=== PATIENT | female | born 1960 | race Caucasian/White ===

== ENCOUNTER 2017-02-15 10:58 | Emergency (ER) | payer OTHER ==
[~2017-02-15] VITALS: Wt 70.3 kg
[2017-02-15 11:05] VITALS: BP 93/53
[2017-02-15] MEDS ORDERED: FEROSUL325 MG PO (11:06)
[2017-02-15] MEDS ORDERED: LISINOPRIL20 MG PO (11:06)
[2017-02-15] MEDS ORDERED: B121000 MCG/1 IM (11:07)
[2017-02-15] MEDS ORDERED: VITAMIN D50000 I3 PO (11:07)
[2017-02-15] MEDS ORDERED: PANTOPRAZOLE SO40 MG PO (11:07)
[2017-02-15] MEDS ORDERED: AUGMENTIN 875-875 MG PO (11:38)
== END 2017-02-15 13:36 | disposition home or self-care (01) ==
LOC: ED 10:58
DX: S51.851A Open bite of right forearm, initial encounter (principal); Z98.84 Bariatric surgery status; Z88.1 Allergy status to other antibiotic agents; W54.0XXA Bitten by dog, initial encounter; Y93.89 Activity, other specified; Y92.9 Unspecified place or not applicable; Y99.9 Unspecified external cause status

== ENCOUNTER → 2017-07-31 | Outpatient (CLI) | payer OTHER ==
[~2017-07-31] MED LIST: AUGMENTIN 875-875 MG PO; B121000 MCG/1 IM; FEROSUL325 MG PO; LISINOPRIL20 MG PO; PANTOPRAZOLE SO40 MG PO; VITAMIN D50000 I3 PO
== END | disposition home or self-care (01) ==
LOC: US 09:49
DX: K80.20 Calculus of gallbladder without cholecystitis without obstruction (principal); K82.8 Other specified diseases of gallbladder

== ENCOUNTER 2018-01-24 21:55 | Emergency (ER) | payer OTHER ==
[~2018-01-24] VITALS: Ht 160 cm; Wt 77.1 kg
[2018-01-24] MEDS ORDERED: CHLORTHALIDONE25 MG PO (22:03)
[2018-01-24 23:45] LABS: BASO # 0.1 10*3/uL (0.0-0.1); BASO % 1.4 % (0.0-1.0); EOS # 0.1 10*3/uL (0.0-0.4); EOS % 1.1 % (1.0-4.0); HEMATOCRIT 36.3 % (37.0-47.0); HEMOGLOBIN 11.6 g/dl (12.0-16.0); LYMPH # 1.9 10*3/uL (1.3-4.4); LYMPH % 26.4 % (27.0-41.0); MEAN CELL VOLUME 94.5 fl (81.0-99.0); MEAN CORPUSCULAR HGB 30.2 pg (27.0-31.0); MEAN PLATELET VOLUME 14.1 fl (9.6-12.3); MONO # 0.7 10*3/uL (0.1-1.0); MONO % 9.8 % (3.0-9.0); NEUT # 4.4 10*3/uL (2.3-7.9); NEUT % 59.9 % (47.0-73.0); PLATELET COUNT AUTOMATED 186 10*3/uL (130-400); RED BLOOD COUNT 3.84 10*6/uL (4.10-5.10); RED CELL DISTRI WIDTH 15.9 % (0-14.5); WHITE BLOOD COUNT 7.3 10*3/uL (4.8-10.8)
[2018-01-24 23:48] LABS: ALBUMIN 2.9 gm/dl (3.1-4.5); ALKALINE PHOSPHATASE 112 U/L (45-117); BUN 19 mg/dl (7-24); CHLORIDE 114 mmol/L (98-107); CREATININE 1.08 mg/dL (0.55-1.02); POTASSIUM 4.5 mmol/L (3.5-5.1); SGOT/AST 11 IU/L (3-35); SGPT/ALT 13 U/L (12-78); SODIUM 145 mmol/L (136-145); TOTAL PROTEIN 6.9 gm/dL (6.4-8.2)
[2018-01-24 23:49] LABS: BILIRUBIN NEGATIVE (NEGATIVE); BLOOD TRACE-LYSED (NEGATIVE); CLARITY CLEAR (CLEAR); COLOR YELLOW (YELLOW); GLUCOSE NEGATIVE (NEGATIVE); KETONE NEGATIVE (NEGATIVE); LEUKO ESTERASE 1+ (NEGATIVE); NITRITE POSITIVE (NEGATIVE); SPECIFIC GRAVITY 1.025 (1.005-1.030); UROBILINOGEN 0.2 E.U./dl (0.2-1.0)
[2018-01-25 00:25] LABS: BACTERIA 2+
[2018-01-25 01:51] VITALS: BP 104/87
== END 2018-01-25 02:04 | disposition short-term general hospital (02) ==
LOC: ED 21:55
PROVIDERS: Nurse Practitioner Family
DX: S73.005A Unspecified dislocation of left hip, initial encounter (principal); N39.0 Urinary tract infection, site not specified; Z88.1 Allergy status to other antibiotic agents; Z88.8 Allergy status to other drugs, medicaments and biological substances; Z91.09 Other allergy status, other than to drugs and biological substances; Z79.899 Other long term (current) drug therapy; Z98.890 Other specified postprocedural states; X50.1XXA Overexertion from prolonged static or awkward postures, initial encounter; Y93.89 Activity, other specified; Y92.89 Other specified places as the place of occurrence of the external cause; Y99.8 Other external cause status

== ENCOUNTER 2018-09-26 06:22 | Emergency (ER) | payer SELFPAY ==
[~2018-09-26] VITALS: Ht 157.4 cm; Wt 77.1 kg
[~2018-09-26 06:22] MED LIST changes: +CHLORTHALIDONE25 MG PO
[2018-09-26 08:45] VITALS: BP 142/73
== END 2018-09-26 09:12 | disposition short-term general hospital (02) ==
LOC: ED 06:22
DX: S73.005A Unspecified dislocation of left hip, initial encounter (principal); Z98.890 Other specified postprocedural states; Z98.84 Bariatric surgery status; Z96.643 Presence of artificial hip joint, bilateral; Z79.899 Other long term (current) drug therapy; Z88.1 Allergy status to other antibiotic agents; Z88.8 Allergy status to other drugs, medicaments and biological substances; X50.1XXA Overexertion from prolonged static or awkward postures, initial encounter; Y93.89 Activity, other specified; Y92.89 Other specified places as the place of occurrence of the external cause; Y99.9 Unspecified external cause status

== ENCOUNTER 2019-07-20 21:03 | Emergency (ER) | payer OTHER ==
[~2019-07-20] VITALS: Ht 170.1 cm; Wt 94.3 kg
[2019-07-20 22:43] VITALS: BP 107/53
== END 2019-07-20 23:00 | disposition home or self-care (01) ==
LOC: ED 21:03
DX: T84.021A Dislocation of internal left hip prosthesis, initial encounter (principal); I10 Essential (primary) hypertension; Z88.1 Allergy status to other antibiotic agents; Z88.8 Allergy status to other drugs, medicaments and biological substances; Z79.899 Other long term (current) drug therapy; X58.XXXA Exposure to other specified factors, initial encounter; Y93.89 Activity, other specified; Y92.89 Other specified places as the place of occurrence of the external cause; Y99.8 Other external cause status

== ENCOUNTER 2019-12-25 12:11 | Emergency (ER) | payer OTHER ==
[2019-12-25 14:10] VITALS: BP 145/78
[2019-12-25] MEDS ORDERED: NORCO 5-325 TA1 EACH PO (14:58)
== END 2019-12-25 14:29 | disposition home or self-care (01) ==
LOC: ED 12:11
DX: S73.015A Posterior dislocation of left hip, initial encounter (principal); I10 Essential (primary) hypertension; Z96.642 Presence of left artificial hip joint; Z88.1 Allergy status to other antibiotic agents; Z88.8 Allergy status to other drugs, medicaments and biological substances; Z79.899 Other long term (current) drug therapy; X58.XXXA Exposure to other specified factors, initial encounter; Y93.89 Activity, other specified; Y92.89 Other specified places as the place of occurrence of the external cause; Y99.8 Other external cause status

== ENCOUNTER → 2020-06-04 | Outpatient (CLI) | payer OTHER ==
[~2020-06-04] MED LIST changes: +DERMACINRX5000 UNI1 PO; +NORCO 5-325 TA1 EACH PO; -VITAMIN D50000 I3 PO
== END | disposition home or self-care (01) ==
LOC: COVID19 00:22
PROVIDERS: ATTEND Ophthalmology
DX: Z01.812 Encounter for preprocedural laboratory examination (principal); Z20.828 Contact with and (suspected) exposure to other viral communicable diseases

== ENCOUNTER 2020-08-07 14:26 | Emergency (ER) | payer OTHER ==
[~2020-08-07] VITALS: Ht 160 cm; Wt 83.9 kg
[2020-08-07 17:28] VITALS: BP 134/72
== END 2020-08-07 17:35 | disposition home or self-care (01) ==
LOC: ED 14:26
DX: M17.11 Unilateral primary osteoarthritis, right knee (principal); M16.11 Unilateral primary osteoarthritis, right hip; I10 Essential (primary) hypertension; K21.9 Gastro-esophageal reflux disease without esophagitis; Z91.048 Other nonmedicinal substance allergy status; Z88.1 Allergy status to other antibiotic agents; Z88.8 Allergy status to other drugs, medicaments and biological substances; Z79.899 Other long term (current) drug therapy; Z98.84 Bariatric surgery status; Z98.890 Other specified postprocedural states; Z96.643 Presence of artificial hip joint, bilateral

== ENCOUNTER → 2021-04-22 | Outpatient (CLI) | payer OTHER ==
[2021-04-22 13:38] LABS: HEMATOCRIT 31.2 % (37.0-47.0); MEAN CELL VOLUME 97.5 fl (81.0-99.0); MEAN CORPUSCULAR HGB 29.4 pg (27.0-31.0); MEAN CORPUSCULAR HGB CONC 30.1 g/dl (33.0-37.0); MEAN PLATELET VOLUME 13.8 fl (9.6-12.3); PLATELET COUNT AUTOMATED 226 10*3/uL (130-400); RED CELL DISTRI WIDTH 17.2 % (0-14.5); WHITE BLOOD COUNT 11.6 10*3/uL (4.8-10.8)
[2021-04-22 13:53] LABS: PLATELET SUFFICIENCY NORMAL (NORMAL); TOTAL CELLS COUNTED 100 #CELLS
[2021-04-23 08:08] LABS: HEP B CORE AB, IGM Negative (Negative); HEPATITIS B SURFACE AG Negative (Negative); HEPATITIS C VIRUS ANTIBODY <0.1 s/co (0.0-0.9)
[2021-04-23 09:07] LABS: RHEUMATOID ARTHRITIS FACTOR 11.2 IU/mL (0.0-13.9)
[2021-04-24 09:06] LABS: ANTI-RNP ANTIBODIES 0.3 AI (0.0-0.9)
[2021-04-24 12:06] LABS: LUPUS DRVVT 46.2 sec (0.0-47.0); LUPUS REFLEX INTERPRETATION Comment: (.); PTT-LA 35.9 sec (0.0-51.9)
[2021-04-26 00:06] LABS: CCP ANTIBODIES IGG/IGA 7 units (0-19)
[2021-04-28 15:07] LABS: HLA-B27 ANTIGEN Negative (.)
== END | disposition home or self-care (01) ==
LOC: LAB 13:17
PROVIDERS: ATTEND Orthopaedic Surgery
DX: M79.641 Pain in right hand (principal)

== ENCOUNTER → 2021-07-13 | Outpatient (CLI) | payer OTHER | END | disposition home or self-care (01) | LOC: RAD 07:43 | PROVIDERS: ATTEND Internal Medicine Rheumatology | DX: I08.2 Rheumatic disorders of both aortic and tricuspid valves (principal); M81.0 Age-related osteoporosis without current pathological fracture; K91.2 Postsurgical malabsorption, not elsewhere classified; Z78.0 Asymptomatic menopausal state ==

== ENCOUNTER → 2021-09-07 | Outpatient (CLI) | payer OTHER | END | disposition home or self-care (01) | LOC: MAMMO 08-29 09:30 | PROVIDERS: ATTEND Nurse Practitioner Women's Health | DX: Z12.31 Encounter for screening mammogram for malignant neoplasm of breast (principal) ==

== ENCOUNTER → 2021-09-22 | Outpatient (CLI) | payer OTHER ==
[~2021-09-22] MED LIST changes: +CELEBREX100 MG PO; +LASIX20 MG PO; +TOPROL XL50 M1 PO; +TYLENOL325 M1 PO; +VICO10300 PO
== END | disposition home or self-care (01) ==
LOC: CARD 09-08 00:04
PROVIDERS: ATTEND Internal Medicine Cardiovascular Disease
DX: I35.0 Nonrheumatic aortic (valve) stenosis (principal); I51.7 Cardiomegaly; I10 Essential (primary) hypertension

== ENCOUNTER → 2022-02-22 | Outpatient (CLI) | payer OTHER ==
[2022-02-22 10:43] LABS: BASO # 0.1 10*3/uL (0.0-0.1); BASO % 1.1 % (0.0-1.0); EOS # 0.1 10*3/uL (0.0-0.4); HEMATOCRIT 36.7 % (37.0-47.0); LYMPH # 1.4 10*3/uL (1.3-4.4); LYMPH % 22.4 % (27.0-41.0); MEAN CELL VOLUME 100.8 fl (81.0-99.0); MEAN CORPUSCULAR HGB 30.5 pg (27.0-31.0); MEAN CORPUSCULAR HGB CONC 30.2 g/dl (33.0-37.0); MEAN PLATELET VOLUME 14.1 fl (9.6-12.3); MONO # 0.5 10*3/uL (0.1-1.0); MONO % 8.4 % (3.0-9.0); NEUT # 4.2 10*3/uL (2.3-7.9); NEUT % 66.1 % (47.0-73.0); PLATELET COUNT AUTOMATED 126 10*3/uL (130-400); RED BLOOD COUNT 3.64 10*6/uL (4.10-5.10); RED CELL DISTRI WIDTH 13.1 % (0-14.5); WHITE BLOOD COUNT 6.3 10*3/uL (4.8-10.8)
[2022-02-22 10:54] LABS: IRON 66 ug/dL (50-170)
== END | disposition home or self-care (01) ==
LOC: LAB 10:17
PROVIDERS: ATTEND Nurse Practitioner Family
DX: D64.9 Anemia, unspecified (principal)

== ENCOUNTER → 2022-04-18 | Outpatient (CLI) | payer OTHER ==
[2022-04-18 09:17] LABS: BUN 30 mg/dl (7-24); CHLORIDE 121 mmol/L (98-107); CHOLESTEROL 137 mg/dL (<200); CREATININE 1.03 mg/dL (0.55-1.02); LDL CHOLESTEROL 48 mg/dL (9-159); POTASSIUM 4.5 mmol/L (3.5-5.1); SGOT/AST 6 IU/L (3-35); SGPT/ALT 12 U/L (12-78); SODIUM 144 mmol/L (136-145); TRIGLYCERIDES 120 mg/dl (<150)
== END ==
LOC: LAB 08:45
PROVIDERS: ATTEND Physician Assistant
DX: I10 Essential (primary) hypertension (principal)

== ENCOUNTER → 2022-05-11 | Outpatient (CLI) | payer OTHER ==
[2022-05-11 13:55] LABS: VITAMIN D, 25-HYDROXY 23.7 ng/mL (30-100)
== END ==
LOC: LAB 11:35
PROVIDERS: ATTEND Registered Nurse
DX: E83.51 Hypocalcemia (principal)

== ENCOUNTER → 2022-06-02 | Outpatient (CLI) | payer OTHER ==
[2022-06-02 10:39] LABS: BILIRUBIN Negative (Negative); BLOOD Trace-Lysed (Negative); CLARITY Cloudy (Clear); COLOR Yellow (Yellow); GLUCOSE Negative (Negative); KETONE Negative (Negative); LEUKO ESTERASE 3+ (Negative); NITRITE Positive (Negative); SPECIFIC GRAVITY 1.015 (1.001-1.030); UROBILINOGEN 0.2 E.U./dl (0.0-1.0)
[2022-06-02 10:45] LABS: CREATININE 1.12 mg/dL (0.55-1.02); TOTAL PROTEIN 6.9 gm/dL (6.4-8.2)
[2022-06-02 12:04] LABS: BACTERIA 2+
[2022-06-02 12:12] LABS: VITAMIN D, 25-HYDROXY 26.6 ng/mL (30-100)
[2022-06-02 12:23] LABS: HEMATOCRIT 37.3 % (37.0-47.0); MEAN CELL VOLUME 100.3 fl (81.0-99.0); MEAN CORPUSCULAR HGB 30.4 pg (27.0-31.0); MEAN CORPUSCULAR HGB CONC 30.3 g/dl (33.0-37.0); MEAN PLATELET VOLUME 14.1 fl (9.6-12.3); PLATELET COUNT AUTOMATED 117 10*3/uL (130-400); RED BLOOD COUNT 3.72 10*6/uL (4.10-5.10); RED CELL DISTRI WIDTH 13.3 % (0-14.5); WHITE BLOOD COUNT 6.6 10*3/uL (4.8-10.8)
[2022-06-02 12:28] LABS: MANUAL DIFF REFLEX YES
[2022-06-02 13:22] LABS: BASOPHILS 2 % (0-1); TOTAL CELLS COUNTED 100 #CELLS
[2022-06-02 13:23] LABS: PLATELET SUFFICIENCY LOW (NORMAL)
[2022-06-03 09:07] LABS: CREATININE,URINE 45.8 mg/dL (Not Estab.)
== END | disposition home or self-care (01) ==
LOC: LAB 09:52
PROVIDERS: ATTEND Internal Medicine
DX: I10 Essential (primary) hypertension (principal); D64.9 Anemia, unspecified

== ENCOUNTER → 2022-07-04 | Outpatient (CLI) | payer OTHER | END | disposition home or self-care (01) | LOC: US 13:00 | PROVIDERS: ATTEND Internal Medicine | DX: N18.9 Chronic kidney disease, unspecified (principal); N28.89 Other specified disorders of kidney and ureter ==

== ENCOUNTER → 2023-01-05 | Outpatient (CLI) | payer OTHER | END | disposition home or self-care (01) | LOC: MRI 00:25 | PROVIDERS: ATTEND Orthopaedic Surgery | DX: M17.12 Unilateral primary osteoarthritis, left knee (principal); M23.92 Unspecified internal derangement of left knee; M25.462 Effusion, left knee ==

== ENCOUNTER → 2023-01-10 | Outpatient (CLI) | payer OTHER | END | disposition home or self-care (01) | LOC: US 00:38 | PROVIDERS: ATTEND Internal Medicine | DX: N18.32 Chronic kidney disease, stage 3b (principal) ==

== ENCOUNTER → 2023-01-24 | Outpatient (CLI) | payer OTHER | END | disposition home or self-care (01) | LOC: D 09:01 | PROVIDERS: ATTEND Student in an Organized Health Care Education/Training Program | DX: E66.9 Obesity, unspecified (principal) ==

== ENCOUNTER 2023-02-10 20:19 | Emergency (ER) | payer OTHER ==
[2023-02-10 20:45] LABS: HEMATOCRIT 35.1 % (37.0-47.0); MEAN CELL VOLUME 95.4 fl (81.0-99.0); MEAN CORPUSCULAR HGB 29.9 pg (27.0-31.0); MEAN CORPUSCULAR HGB CONC 31.3 g/dl (33.0-37.0); PLATELET COUNT AUTOMATED 101 10*3/uL (130-400); RED BLOOD COUNT 3.68 10*6/uL (4.10-5.10); RED CELL DISTRI WIDTH 13.6 % (0-14.5); WHITE BLOOD COUNT 7.3 10*3/uL (4.8-10.8)
[2023-02-10 21:09] LABS: MANUAL DIFF REFLEX YES
[2023-02-10 21:12] LABS: PLATELET SUFFICIENCY LOW (NORMAL); TOTAL CELLS COUNTED 100 #CELLS
[2023-02-10 21:19] LABS: ALKALINE PHOSPHATASE 79 U/L (46-116); BUN 37 mg/dl (9-23); CHLORIDE 112 mmol/L (98-107); ETHYL ALCOHOL 278.3 mg/dl (<3); POTASSIUM 4.3 mmol/L (3.4-5.1); SGPT/ALT < 7 U/L (10-49); TOTAL PROTEIN 6.6 gm/dL (6.0-8.0)
[2023-02-11 03:33] LABS: BILIRUBIN Negative (Negative); BLOOD Trace-Lysed (Negative); CLARITY Cloudy (Clear); COLOR Yellow (Yellow); GLUCOSE Negative (Negative); KETONE Negative (Negative); LEUKO ESTERASE 3+ (Negative); NITRITE Negative (Negative); PH 6.5 (4.5-8.0)
[2023-02-11 03:40] LABS: URINE AMPHETAMINES Negative (1000ng/ml); URINE BARBITURATES Negative (200ng/ml); URINE BENZODIAZEPINES Negative (200ng/ml); URINE CANNABINOIDS (THC) Negative (50ng/ml); URINE COCAINE Negative (300ng/ml); URINE METHADONE Negative (300ng/ml); URINE OPIATES Positive (300ng/ml); URINE PHENCYCLIDINE Negative (25ng/ml)
[2023-02-11 03:50] LABS: BACTERIA 3+; RBC 0-2 rbc/hpf (0-2); WBC 41-50 wbc/hpf (0-5)
[2023-02-11 06:06] VITALS: BP 131/77
== END 2023-02-11 12:48 | disposition home or self-care (01) ==
LOC: ED 20:19
PROVIDERS: Internal Medicine
DX: R45.851 Suicidal ideations (principal); N18.9 Chronic kidney disease, unspecified; N17.9 Acute kidney failure, unspecified; F10.129 Alcohol abuse with intoxication, unspecified; I10 Essential (primary) hypertension; K21.9 Gastro-esophageal reflux disease without esophagitis; E83.42 Hypomagnesemia; D64.9 Anemia, unspecified; N39.0 Urinary tract infection, site not specified; Z88.8 Allergy status to other drugs, medicaments and biological substances; Z88.1 Allergy status to other antibiotic agents; Z98.890 Other specified postprocedural states; Z98.49 Cataract extraction status, unspecified eye; Y90.0 Blood alcohol level of less than 20 mg/100 ml

== ENCOUNTER → 2023-10-29 | Outpatient (CLI) | payer OTHER | END | disposition home or self-care (01) | LOC: RAD 01:35 → CARD 10:30 | PROVIDERS: ATTEND Nurse Practitioner Family | DX: I51.7 Cardiomegaly (principal); M81.8 Other osteoporosis without current pathological fracture; M34.1 CR(E)ST syndrome; M34.9 Systemic sclerosis, unspecified; Z79.899 Other long term (current) drug therapy ==

== ENCOUNTER → 2024-01-31 | Outpatient (CLI) | payer MEDICARE | END | disposition home or self-care (01) | LOC: LAB 08:56 | PROVIDERS: ATTEND Nurse Practitioner Family | DX: E83.51 Hypocalcemia (principal) ==

== ENCOUNTER → 2024-09-19 | Outpatient (CLI) | payer MEDICARE ==
[2024-09-19 10:09] LABS: MEAN CELL VOLUME 99.1 fl (81.0-99.0); MEAN CORPUSCULAR HGB 28.6 pg (27.0-31.0); MEAN CORPUSCULAR HGB CONC 28.8 g/dl (33.0-37.0); PLATELET COUNT AUTOMATED 106 10*3/uL (130-400); RED BLOOD COUNT 3.43 10*6/uL (4.10-5.10); RED CELL DISTRI WIDTH 14.6 % (0-14.5); WHITE BLOOD COUNT 8.8 10*3/uL (4.8-10.8)
[2024-09-19 10:11] LABS: MANUAL DIFF REFLEX YES
[2024-09-19 10:17] LABS: CHOLESTEROL 144 mg/dL (<200); LDL CHOLESTEROL 66 mg/dL (9-159); TRIGLYCERIDES 88 mg/dl (<150)
[2024-09-19 10:18] LABS: POTASSIUM 4.6 mmol/L (3.4-5.1); TOTAL PROTEIN 6.8 gm/dL (6.0-8.0)
== END | disposition home or self-care (01) ==
LOC: LAB 09:34
PROVIDERS: Internal Medicine Nephrology; ATTEND Internal Medicine
DX: I12.9 Hypertensive chronic kidney disease with stage 1 through stage 4 chronic kidney disease, or unspecified chronic kidney disease (principal); N18.32 Chronic kidney disease, stage 3b; E21.3 Hyperparathyroidism, unspecified; E87.5 Hyperkalemia; D63.1 Anemia in chronic kidney disease; N29 Other disorders of kidney and ureter in diseases classified elsewhere; M34.9 Systemic sclerosis, unspecified; E55.9 Vitamin D deficiency, unspecified

== ENCOUNTER → 2025-01-23 | Outpatient (CLI) | payer OTHER ==
[2025-01-23 16:06] LABS: POTASSIUM 5.1 mmol/L (3.4-5.1); TOTAL PROTEIN 6.4 gm/dL (6.0-8.0)
== END | disposition home or self-care (01) ==
LOC: LAB 15:16
PROVIDERS: ATTEND Nurse Practitioner Family
DX: E87.5 Hyperkalemia (principal)

== ENCOUNTER → 2025-03-02 | Outpatient (CLI) | payer OTHER ==
[2025-03-02 12:02] LABS: MANUAL DIFF REFLEX YES; MEAN CELL VOLUME 97.5 fl (81.0-99.0); MEAN CORPUSCULAR HGB 27.9 pg (27.0-31.0); NUCLEATED RED BLOOD CELL 0.0 % (0.0-0.0); NUCLEATED RED BLOOD CELL 0.0 10*3/uL (0.0-0.0); PLATELET COUNT AUTOMATED 123 10*3/uL (130-400); RED CELL DISTRI WIDTH 14.1 % (0-14.5)
[2025-03-02 12:21] LABS: BASOPHILS 2 % (0-1); PLATELET SUFFICIENCY LOW (NORMAL)
[2025-03-02 12:25] LABS: BUN 36 mg/dl (9-23)
[2025-03-02 12:26] LABS: SGPT/ALT < 7 U/L (5-49)
[2025-03-02 12:28] LABS: VITAMIN D, 25-HYDROXY 54.2 ng/mL (30-100)
== END | disposition home or self-care (01) ==
LOC: LAB 10:28 → CARD 10:30
PROVIDERS: Nurse Practitioner Adult Health; ATTEND Physician Assistant
DX: I12.9 Hypertensive chronic kidney disease with stage 1 through stage 4 chronic kidney disease, or unspecified chronic kidney disease (principal); N18.32 Chronic kidney disease, stage 3b; I34.0 Nonrheumatic mitral (valve) insufficiency; I51.7 Cardiomegaly; R06.02 Shortness of breath; E87.5 Hyperkalemia; E55.9 Vitamin D deficiency, unspecified; N29 Other disorders of kidney and ureter in diseases classified elsewhere; M34.9 Systemic sclerosis, unspecified; E83.42 Hypomagnesemia

== ENCOUNTER 2025-03-10 13:07 | Emergency (ER) | payer OTHER ==
[~2025-03-10] VITALS: Ht 160 cm; Wt 78.9 kg
[2025-03-10] MEDS ORDERED: SODIUM CHLORIDE 0.9% 1,000 ML IV ONE (15:15)
[2025-03-10 15:36] LABS: BILIRUBIN Negative (Negative); BLOOD 1+ (Negative); CLARITY Turbid (Clear); COLOR Yellow (Yellow); KETONE Trace (Negative); LEUKO ESTERASE 3+ (Negative); NITRITE Positive (Negative); PH 5.0 (4.5-8.0); SPECIFIC GRAVITY 1.020 (1.001-1.030); UROBILINOGEN 0.2 E.U./dl (0.0-1.0)
[2025-03-10 16:01] LABS: MEAN CELL VOLUME 96.5 fl (81.0-99.0); MEAN CORPUSCULAR HGB 28.3 pg (27.0-31.0); NUCLEATED RED BLOOD CELL 0.0 % (0.0-0.0); NUCLEATED RED BLOOD CELL 0.0 10*3/uL (0.0-0.0); RED CELL DISTRI WIDTH 13.8 % (0-14.5)
[2025-03-10 16:11] LABS: MANUAL DIFF REFLEX YES; PLATELET COUNT AUTOMATED 95 10*3/uL (130-400)
[2025-03-10 16:21] LABS: BUN 37 mg/dl (9-23)
[2025-03-10 16:23] LABS: PLATELET SUFFICIENCY LOW (NORMAL)
[2025-03-10 16:23] LABS: BACTERIA 3+; WBC TNTC wbc/hpf (0-5)
[2025-03-10 16:26] LABS: SGPT/ALT < 7 U/L (5-49)
[2025-03-10] MEDS ORDERED: HYDROmorphONE Hydrochloride 0.5 MG/0.5 ML SYRINGE IV ONE ×2 (17:15→18:20)
[2025-03-10 17:30] VITALS: BP 136/78
[2025-03-10] MEDS ORDERED: CEPHALEXIN500 M1 PO (17:53)
== END 2025-03-10 18:48 | disposition home or self-care (01) ==
LOC: ED 13:07
PROVIDERS: Nurse Practitioner Family
DX: N39.0 Urinary tract infection, site not specified (principal); G89.29 Other chronic pain; I12.9 Hypertensive chronic kidney disease with stage 1 through stage 4 chronic kidney disease, or unspecified chronic kidney disease; N18.4 Chronic kidney disease, stage 4 (severe); K21.9 Gastro-esophageal reflux disease without esophagitis; Z79.899 Other long term (current) drug therapy; Z88.1 Allergy status to other antibiotic agents; Z88.8 Allergy status to other drugs, medicaments and biological substances; Z96.643 Presence of artificial hip joint, bilateral; Z98.890 Other specified postprocedural states

== ENCOUNTER → 2025-03-23 | Outpatient (CLI) | payer OTHER ==
[~2025-03-23] MED LIST changes: +ALBUTEROL4 MG PO; +CALCIUM CITRAT200 M1 PO; +CEPHALEXIN500 M1 PO; +CHILDREN'S FLO5.9 ML INH; +COLCHICINE0.6 M1 PO; +FAMOTIDINE20 M1 PO; +FEBUXOSTAT40 MG PO; +HYDROCODONE-AC1 EACH PO; +MAGNESIUM400 MG PO; +MONTELUKAST SOD10 MG PO; +MYCOPHENOLATE500 MG PO; +PANTOPRAZOLE SO20 MG PO; +ZYRTEC10 M2 PO
[2025-03-23 11:18] LABS: BUN 30.0 mg/dl (9-23); SGPT/ALT 7.0 U/L (5-49)
== END | disposition home or self-care (01) ==
LOC: LAB 09:44
PROVIDERS: ATTEND Nurse Practitioner Adult Health
DX: I12.9 Hypertensive chronic kidney disease with stage 1 through stage 4 chronic kidney disease, or unspecified chronic kidney disease (principal); N18.32 Chronic kidney disease, stage 3b; E87.5 Hyperkalemia; E83.42 Hypomagnesemia

== ENCOUNTER → 2025-03-25 | Outpatient (CLI) | payer OTHER | END | disposition home or self-care (01) | LOC: US 14:13 | PROVIDERS: ATTEND Physician Assistant | DX: M79.89 Other specified soft tissue disorders (principal); M79.601 Pain in right arm ==